=== PATIENT | male | born 1990 | race Two or more races ===

== ENCOUNTER 2020-09-05 10:06 | Emergency (ER) | payer OTHER ==
[~2020-09-05] VITALS: Ht 188 cm; Wt 113.4 kg
[2020-09-05] MEDS ORDERED: MOTION RELIEF25 MG PO (18:26)
[2020-09-05] MEDS ORDERED: PHENERGAN25 MG PO (18:26)
[2020-09-05] MEDS ORDERED: BENADRYL25 MG PO (18:26)
== END 2020-09-05 20:31 | disposition home or self-care (01) ==
LOC: ER 10:06
DX: R42 Dizziness and giddiness (principal); R11.11 Vomiting without nausea; Z03.818 Encounter for observation for suspected exposure to other biological agents ruled out